=== PATIENT | female | born 1950 | race Caucasian/White ===

== ENCOUNTER 2017-08-04 04:05 | Emergency (ER) | payer MEDICARE, OTHER ==
--- NOTE | 2017-08-05 09:45 | Diagnostic Imaging Report ---
LYNN BOWDEN [facility] [id number] [facility] [address] [id number] Report Submission Date: Aug 04, 2017 5:32:21 AM CDT Patient Study Name: MATTHEW BOWEN Date: Aug 04, 2017 5:14:47 AM CDT Modality Type: CT\SR Gender: F Description: CT BRAIN W/O CONTRAST : 48 Institution: [facility] Physician: LYNN BOWDEN Head CT without contrast Clinical history: Fall with laceration to the back of the head. Technique: CT examination of the brain is performed in contiguous axial slices without the use of contrast. Sagittal and coronal reconstructions are performed by the technologist. Findings: The fourth ventricle lies in a normal midline position. The ventricles and sulci are prominent secondary to atrophy. There is an old infarct in the right middle cerebral artery distribution. There is a posterior scalp injury with skin raissa in place. There is no intracranial hemorrhage, mass or mass effect. Intracranial atherosclerosis is demonstrated. Impression: 1. Posterior scalp injury. 2. 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 3. Atrophy. 4. Intracranial atherosclerosis. Electronically signed on Aug 04, 2017 5:32:21 AM CDT by: Alexander CARRERO
== END 2017-08-04 05:40 | disposition home or self-care (01) ==
LOC: ED 04:05
DX: S01.01XA Laceration without foreign body of scalp, initial encounter (principal); S50.312A Abrasion of left elbow, initial encounter; S90.512A Abrasion, left ankle, initial encounter; W19.XXXA Unspecified fall, initial encounter; Y93.9 Activity, unspecified; Y99.9 Unspecified external cause status
CPT/HCPCS: 12002; 70450; 99283